=== PATIENT | female | born 1975 | race Caucasian/White ===

== ENCOUNTER 2018-11-30 13:45 | Outpatient (CLI) | payer MEDICAID ==
--- NOTE | 2018-11-30 14:56 | XRAY Report ---
Reason: COUGH,RHONCHI,SWEATING,CHEST PAIN Procedure Date: 11/30/2018 Accession Number: [id number] / [id number] Procedure: XR - Chest 2 View X-Ray CPT Code: 94010 FULL RESULT: EXAM: CHEST RADIOGRAPHY EXAM DATE: 11/30/2018 02:08 PM. CLINICAL HISTORY: Cough, rhonchi, sweating, chest pain. COMPARISON: None. TECHNIQUE: 2 views. FINDINGS: Lungs/Pleura: No focal opacities evident. No pleural effusion. No pneumothorax. Normal volumes. Mediastinum: Heart and mediastinal contours are unremarkable. Other: None. IMPRESSION: Normal 2-view chest radiography. [facility]
== END 2018-11-30 13:46 | disposition home or self-care (01) ==
LOC: DI 13:45
PROVIDERS: ATTEND Naturopath
DX: R05 Cough (principal); R07.1 Chest pain on breathing; R09.89 Other specified symptoms and signs involving the circulatory and respiratory systems; R61 Generalized hyperhidrosis
CPT/HCPCS: 71046

== ENCOUNTER 2019-03-06 00:16 | Outpatient (CLI) | payer MEDICAID ==
--- NOTE | 2019-03-06 03:38 | Ultrasound Report ---
Reason: ANTERIOR NECK PAIN,SENSATION WITH SWALLOWING,IVIS Procedure Date: 03/06/2019 Accession Number: [id number] / [id number] Procedure: US - Head or Neck Soft Tissue CPT Code: FULL RESULT: EXAM: THYROID ULTRASOUND EXAM DATE: 03/06/2019 01:16 AM. CLINICAL HISTORY: ANTERIOR NECK PAIN,SENSATION WITH SWALLOWING,IVIS. COMPARISON: None. TECHNIQUE: Real time sonographic imaging of the thyroid was performed by the director of product development. Multiple medical service representative static images were saved for review. FINDINGS: THYROID GLAND: Right Lobe: 4.2 x 1.4 x 1.3 cm, volume 4 cc. Heterogeneous echotexture. Right Lobe Nodules: There are hypoechoic, poorly delineated vascular regions within the right lobe of the thyroid. The appearance is suspicious for thyroiditis. Left Lobe: 3.3 x 1.2 x 0.9 cm, volume 2 cc. Heterogeneous echotexture. Left Lobe Nodules: There are hypoechoic, poorly delineated vascular regions within the left lobe of the thyroid. The appearance is suspicious for thyroiditis. Isthmus: 0.1 cm AP. Isthmic Nodules: None. LYMPH NODES: No adenopathy demonstrated in the central or lateral compartment. OTHER: None. IMPRESSION: Poorly defined hypoechoic regions within both lobes of the thyroid, with increased vascularity. The appearance is suspicious for thyroiditis with focal thyroid edema. Management recommendations are based on 2015 [place] [employer] Management Guidelines for Adult Patients with Thyroid Nodules and Differentiated Thyroid Cancer. [facility]
== END 2019-03-06 00:17 | disposition home or self-care (01) ==
LOC: DI 00:16
PROVIDERS: ATTEND Naturopath
DX: M54.2 Cervicalgia (principal)
CPT/HCPCS: 76536

== ENCOUNTER 2021-05-31 13:17 | Outpatient (CLI) | payer OTHER ==
[2021-05-31 19:53] LABS: BASOPHILS # (AUTO) 0.1 10^3/uL (0.0-0.1); BASOPHILS % (AUTO) 0.9 %; EOSINOPHILS # (AUTO) 0.9 10^3/uL (0.0-0.7); EOSINOPHILS % (AUTO) 13.9 %; HCT - HEMATOCRIT 36.1 % (37.0-47.0); HGB - HEMOGLOBIN 10.8 g/dL (12.0-16.0); LYMPHOCYTES # (AUTO) 1.8 10^3/uL (1.5-3.5); MEAN CORPUSCULAR HEMOGLOBIN 25.4 pg (27.0-31.0); MEAN CORPUSCULAR HGB CONC 29.9 g/dL (32.0-36.0); MEAN CORPUSCULAR VOLUME 84.7 fL (81.0-99.0); MEAN PLATELET VOLUME 11.1 fL (7.9-10.8); MONOCYTES # (AUTO) 0.5 10^3/uL (0.0-1.0); MONOCYTES % (AUTO) 6.8 %; NEUTROPHILS # (AUTO) 3.5 10^3/uL (1.5-6.6); NEUTROPHILS % (AUTO) 51.1 %; PLT - PLATELET COUNT 310 10^3/uL (130-450); RED BLOOD COUNT 4.26 10^6/uL (4.20-5.40); RED CELL DISTRIBUTION WIDTH 16.3 % (12.0-15.0); WHITE BLOOD COUNT 6.8 x10^3/uL (4.8-10.8)
[2021-05-31 20:17] LABS: % IRON SATURATION 7 % (20-50); IRON 37 ug/dL (28-170); TOTAL IRON BINDING CAPACITY 508 ug/dL (250-450); TRANSFERRIN 363 mg/dL (192-382)
[2021-05-31 20:23] LABS: T4 (THYROXINE) 5.68 ug/dL (6.09-12.23)
[2021-05-31 20:24] LABS: THYROID STIMULATING HORMONE 1.7 uIU/mL (0.34-5.60)
[2021-05-31 20:32] LABS: FERRITIN 5.3 ng/mL (11.0-306.8)
[2021-05-31 20:35] LABS: FOLATE 12.96 ng/mL (5.90 - >24.8)
== END 2021-05-31 13:18 | disposition home or self-care (01) ==
LOC: LAB.S 13:17
PROVIDERS: ATTEND Registered Nurse
DX: D64.9 Anemia, unspecified (principal); E03.9 Hypothyroidism, unspecified
CPT/HCPCS: 36415; 82607; 82728; 82746; 83540; 84436; 84443; 84466; 84480; 85025

== ENCOUNTER 2022-02-12 08:00 | Outpatient (CLI) | payer OTHER | END 2022-02-12 23:59 | disposition home or self-care (01) | LOC: LAB.S 08:00 | PROVIDERS: ATTEND Physician Assistant Medical | DX: R07.0 Pain in throat (principal); R69 Illness, unspecified | CPT/HCPCS: 87070 ==

== ENCOUNTER 2024-01-27 07:38 | Outpatient (CLI) | payer OTHER ==
[2024-01-27 14:58] LABS: BASOPHILS # (AUTO) 0.1 10^3/uL (0.0-0.1); EOSINOPHILS # (AUTO) 0.1 10^3/uL (0.0-0.7); EOSINOPHILS % (AUTO) 1.6 %; HGB - HEMOGLOBIN 13.6 g/dL (12.0-16.0); LYMPHOCYTES # (AUTO) 1.9 10^3/uL (1.5-3.5); LYMPHOCYTES % (AUTO) 38.8 %; MEAN CORPUSCULAR HEMOGLOBIN 30.3 pg (27.0-31.0); MEAN CORPUSCULAR HGB CONC 32.4 g/dL (32.0-36.0); MEAN CORPUSCULAR VOLUME 93.5 fL (81.0-99.0); MEAN PLATELET VOLUME 10.7 fL (7.9-10.8); MONOCYTES # (AUTO) 0.5 10^3/uL (0.0-1.0); MONOCYTES % (AUTO) 9.7 %; NEUTROPHILS # (AUTO) 2.4 10^3/uL (1.5-6.6); NEUTROPHILS % (AUTO) 48.7 %; PLT - PLATELET COUNT 291 10^3/uL (130-450); RED BLOOD COUNT 4.49 10^6/uL (4.20-5.40); RED CELL DISTRIBUTION WIDTH 12.3 % (12.0-15.0); WHITE BLOOD COUNT 4.9 x10^3/uL (4.8-10.8)
[2024-01-27 16:06] LABS: ALBUMIN/GLOBULIN RATIO 1.5 (1.0-2.2); ALKALINE PHOSPHATASE 54 IU/L (42-121); ALT ALANINE AMINOTRANSFERASE 13 IU/L (10-60); AST ASPARTATE AMINOTRANSFERASE 16 IU/L (10-42); BILIRUBIN,TOTAL 0.5 mg/dL (0.2-1.0); BUN - BLOOD UREA NITROGEN 13 mg/dL (6-20); CALCIUM 9.7 mg/dL (8.5-10.3); CARBON DIOXIDE - CO2 28 mmol/L (21-32); CHLORIDE 105 mmol/L (101-111); CHOLESTEROL 203 mg/dL; CREATININE 0.7 mg/dL (0.6-1.3); GFR - MDRD 89 (>89); GLUCOSE 90 mg/dL (74-104); HDL CHOLESTEROL 68 mg/dL; LDL CHOLESTEROL,CALCULATED 109 mg/dL; LDL/HDL RATIO 1.6 (<4.4); POTASSIUM 4.7 mmol/L (3.5-4.5); SODIUM 136 mmol/L (135-145); TOTAL PROTEIN 6.6 g/dL (6.4-8.9); TRIGLYCERIDES 128 mg/dL (48-352); VLDL CHOLESTEROL 26 mg/dL
[2024-01-27 16:17] LABS: THYROID STIMULATING HORMONE 2.63 uIU/mL (0.34-5.60)
== END 2024-01-27 07:39 | disposition home or self-care (01) ==
LOC: LAB.S 07:38
PROVIDERS: ATTEND Registered Nurse
DX: Z79.899 Other long term (current) drug therapy (principal); Z13.220 Encounter for screening for lipoid disorders; E03.9 Hypothyroidism, unspecified
CPT/HCPCS: 36415; 80053; 80061; 83721; 84443; 85025

== ENCOUNTER 2024-02-21 08:00 | Outpatient (CLI) | payer OTHER ==
--- NOTE | 2024-02-21 11:29 | XRAY Report ---
PROCEDURE: Chest 2V INDICATIONS: CHEST CONGESTION TECHNIQUE: 2 views of the chest were acquired. COMPARISON: Chest x-ray 02/14/2022 FINDINGS: Surgical changes and devices: None. Lungs and pleura: No pleural effusions or pneumothorax. Lungs are clear. Mediastinum: Mediastinal contours appear normal. Heart size is normal. Bones and chest wall: No suspicious bony lesions. Overlying soft tissues appear unremarkable. IMPRESSION: No acute cardiopulmonary process. Reviewed by: Haley Baca MD on 02/21/2024 11:28 AM PDT Approved by: Haley Baca MD on 02/21/2024 11:28 AM PDT Station ID: [id number]
== END 2024-02-21 23:59 | disposition home or self-care (01) ==
LOC: DI.S 08:00
PROVIDERS: ATTEND Physician Assistant Medical
DX: R09.89 Other specified symptoms and signs involving the circulatory and respiratory systems (principal)